=== PATIENT | female | born 1950 | race Two or more races ===

== ENCOUNTER 2024-09-07 10:39 | Outpatient (AMB) | payer MEDICARE, MEDICAID, SELFPAY ==
--- NOTE | 2024-09-07 11:04 | PD.ORTHCLVIS ---
Vital signs 09/07/24 11:05 Height 1.68 m Height Method Stated Weight 112.151 kg Weight Measurement Method Standing Scale BMI 39.9 BP 131/74 H Blood Pressure Source Automatic Cuff Blood Pressure Location Right Upper Arm Position Sitting Respiration 18 Pulse 68 Pulse Source Monitor Temp 98.2 F Temp Source Temporal Artery Scan Pulse Oximetry (%) 95 Oxygen Delivery Method Room Air Med/Allergies Allergies & Medications Allergies gabapentin Allergy (Severe, Verified 09/07/24 11:05) Hives Medication Reconciliation olmesartan 20 mg tablet (Benicar) 5 mg PO DAILY ##0 12/12/12 [History Confirmed 09/07/24] pravastatin 40 mg tablet 40 mg PO HS ##30 11/28/13 [History Confirmed 09/07/24] omeprazole 20 mg capsule,delayed release 40 mg PO QDAY ##0 08/16/14 [History Confirmed 09/07/24] glipizide 5 mg tablet 10 mg PO DAILY 08/02/19 [History Confirmed 09/07/24] levothyroxine 88 mcg tablet 100 mcg PO QDAY 03/14/20 [History Confirmed 09/07/24] aspirin 81 mg tablet,delayed release 81 mg PO QDAY 07/19/20 [History Confirmed 09/07/24] metoprolol succinate 25 mg tablet,extended release 24 hr 50 mg PO QDAY 07/19/20 [History Confirmed 09/07/24] biotin 5,000 mcg disintegrating tablet 5,000 mcg PO HS 02/22/23 [History Confirmed 09/07/24] cyanocobalamin (vitamin B-12) 1,000 mcg tablet (Vitamin B-12) 1,000 mcg PO QDAY 02/22/23 [History Confirmed 09/07/24] empagliflozin 10 mg tablet (Jardiance) 10 mg PO DAILY 02/22/23 [History Confirmed 09/07/24] hydrochlorothiazide 12.5 mg tablet 12.5 mg PO DAILY 02/22/23 [History Confirmed 09/07/24] metoclopramide HCl 10 mg tablet 10 mg PO DAILY 02/22/23 [History Confirmed 09/07/24] milk thistle 175 mg capsule 175 mg PO DAILY 02/22/23 [History Confirmed 09/07/24] omega-3 fatty acids-vitamin E 1,000 mg-5 unit capsule 1 cap PO BID 02/22/23 [History Confirmed 09/07/24] sitagliptin phosphate 50 mg-metformin 500 mg tablet (Janumet) 500 tab PO BID 02/22/23 [History Confirmed 09/07/24] clonidine HCl 0.1 mg tablet 0.1 mg PO QHS 09/07/24 [History Confirmed 09/07/24] lidocaine 4 % topical patch (Lidocaine Pain Relief) 1 patch topical QDAY PRN 09/07/24 [History Confirmed 09/07/24] meloxicam 7.5 mg tablet 7.5 mg PO QDAY #45 tabs 09/07/24 [Rx] tramadol 50 mg tablet 50 mg PO QDAY 09/07/24 [History Confirmed 09/07/24] Subjective Visit Visit for: new patient and knee Immunization / Flu Flu Vaccine in the Last 12 Months: Yes Flu Vaccine Exclusion Criteria: Already Received History of Present Illness Chief complaint: (L) KNEE PAIN Consuelo is a 74-year-old female with a left knee pain status post left total knee replacement. She reports that her surgery was in 2008. She did well up until 3 months ago. The pain is on the outer aspect of her knee. She is wearing a lidocaine patch because of the pain. She reports like it feels like it hurts over the bone Review of Systems Review of Systems: All systems negative unless otherwise noted in HPI. Exam Exam Patient is in no acute distress and is cooperative with the examination today. Breathing is nonlabored. In no respiratory distress. Bilateral extremities were evaluated and demonstrates sensation intact to light touch. Palpable pedal pulses are present. No significant edema is present. Bilateral hips were examined. The patient has no pain with log roll of the hips. Internal rotation to 30 degrees and external rotation to 30 degrees is painless. Negative FADIR. Right knee was examined today. The right knee is in reasonable alignment. Range of motion is from 0-120 degrees. Knee is stable to varus and valgus as well as AP translation with <5mm. Patient has a negative [place]. There is no pain with patellofemoral compression and no crepitus noted. The knee is nontender to palpation. Left knee incision is clean dry intact. She is tender to palpation laterally. Range of motion is 0 to 100 degrees. The knee feels like there is 5 mm of laxity X-rays demonstrate a cemented left total knee replacement in good alignment position. I do not see any gross loosening of the components Assessment and Plan Problem List (1) History of total left knee replacement: Status: Acute Plan: 74-year-old female with left knee pain and A left total knee replacement. We discussed that I do not see any gross loosening of the components. We will try physical therapy at this point in time. She would like a second opinion I think that is fine. We also sent her prescription for meloxicam Advanced Care Planning Discussion Advance care planning discussed with:: patient Office Procedures GNS Level of Care Nursing/Assessment Patient Status: Established Patient Nursing Assessment/Reassesment: Medication Reconciliation, Update PMH in EMR and Vital Signs Coordination of Care: Complex Care and Chronic Disease 1-5, Education Complex Pt/Fam, Consent,records obtained, informed consent, Results/Orders obtained and Staff clarify orders Established Patient Charge Established Patient Point Assignment: 95 Established Patient Point Charge: EP Level 3 (80-115) Past Medical History Past Medical History Have you ever been diagnosed with any of the following: Neurological Problems Seizures: No Cardiology Problems Coronary Artery Disease: Yes Hypercholesterolemia: Yes Congestive Heart Failure: No Hypertension: Yes Respiratory Problems Chronic Obstructive Pulmonary Disease (COPD): No Asthma: No Bronchitis: Yes Smoking: No Smoking Exposure: No Stomache/Intestinal Problems Obstructive Bowel: Yes Gastroesophageal Reflux Disease: Yes Genital/Urinary Problems Renal Disease: No Kidney Stones: Yes Reproductive Problems Breast Cancer: No Pelvic Inflammatory Disease: No Previous Pregnancies: Yes Musculoskeletal Problems Arthritis: Yes Carpal Tunnel Syndrome: Yes Head,Eye,Nose,Throat Problems Cataracts: Yes Endocrine Problems Diabetes Mellitus Type 1: No Diabetes Mellitus Type 2: Yes Hypothyroidism: Yes Blood Problems Anemia: Yes Sickle Cell Disease: No Other Problems Hospitalization: No Down Syndrome: No Developmental Delay: No Shingles: No Falls: No Blood Transfusions: No Anesthesia Reactions: No MRSA: No Vancomycin-Resistant Enterococci: No Chicken Pox: Yes Measles: Yes Mumps: Yes Cancer: No Surgical History Appendectomy: Yes Total Knee Replacement: Yes Hysterectomy: Yes Additional Surgical History: CORONARY STENT, COLONOSCOPY, ENDOSCOPY & LEFT AND RIGHT CATARACT SURGERY
[2024-09-07 11:05] VITALS: BP 131/74; PULSE 68; RESP 18; TEMP 36.8; O2SAT 95; BMI 39.9
== END 2024-09-07 11:36 | disposition home or self-care (01) ==
LOC: HODSRG 10:39
PROVIDERS: Supervising Provider Orthopaedic Surgery Adult Reconstructive Orthopaedic Surgery; Visit Provider Orthopaedic Surgery Adult Reconstructive Orthopaedic Surgery
DX: Z96.652 Presence of left artificial knee joint (principal); M25.562 Pain in left knee; I10 Essential (primary) hypertension; E78.00 Pure hypercholesterolemia, unspecified; I25.10 Atherosclerotic heart disease of native coronary artery without angina pectoris; Z95.5 Presence of coronary angioplasty implant and graft
CPT/HCPCS: 99213; G0463

== ENCOUNTER → 2024-09-07 | Outpatient (CLI) | payer MEDICARE, MEDICAID, SELFPAY ==
[2024-09-07 12:19] LABS: OBS Card Expiration Date 2026; OBS Card Lot # 23001; OBS Performed By LAB; OBS QC OK? Yes
[2024-09-07 13:37] LABS: OBS Developer Lot # 23003; Occult Blood, Stool Negative (Negative); Occult Blood, Stool #2 Negative (Negative); Occult Blood, Stool #3 Negative (Negative)
== END | disposition home or self-care (01) ==
LOC: SLDO 12:07
PROVIDERS: Referring Provider Internal Medicine; Visit Provider Internal Medicine
DX: Z12.11 Encounter for screening for malignant neoplasm of colon (principal)
CPT/HCPCS: 82270

== ENCOUNTER → 2024-11-15 | Outpatient (CLI) | payer MEDICARE, MEDICAID, SELFPAY ==
--- NOTE | 2024-11-15 10:15 | XR_ITS ---
Exam: MRI knee without contrast, left Date and time of exam: November 15, 2024 1118 hours INDICATIONS: Bilateral knee pain beginning 4 months ago, history knee replacement 2008, positive drawer sign Technique: Multiple axial, coronal, and sagittal sections on the knee have been obtained. T2-Weighted sagittal, fat-suppressed images, TR 3,500, TE 62, T2 weighted coronal fat-saturated images, TR 3,500, TE 62 Proton density sagittal sections, TR 1800, TE 31. T-1 weighted coronal images, TR 524, TE 13.0 Findings: All of the images are severely degraded by magnetic susceptibility artifact from the patient's arthroplasty There is no diagnostic visualization of the cruciate ligaments or menisci No patellar dislocation IMPRESSION: Suggest standard contrast fluoroscopically guided arthrogram to assess the cruciate ligaments
[2024-11-15 12:47] LABS: Misc Send Out* See Sep Rpt
[2024-11-15 13:17] LABS: Collection Type, Urine Clean Catch
[2024-11-15 13:33] LABS: Basophils # (Auto) 0.1 Thou/mm3 (0.0-0.2); Basophils % (Auto) 1 % (0-2.5); Eosinophils # (Auto) 0.3 Thou/mm3 (0.0-0.5); Eosinophils % (Auto) 3 % (0-10); Hemoglobin 11.5 g/dL (12.0-16.0); Immature Granulocytes % (Auto) 1 % (0-0); Immature Granulocytes Auto 0.07 Thou/mm3 (0.00-0.00); Lymphocytes # (Auto) 2.7 Thou/mm3 (1.0-4.8); Lymphocytes % (Auto) 31 % (10-50); Mean Corpuscular HGB Conc 32.9 g/dl (31.0-37.0); Mean Corpuscular Hemoglobin 27.8 pg (25.0-35.0); Mean Corpuscular Volume 85 fL (80-100); Monocytes # (Auto) 0.5 Thou/mm3 (0.0-0.8); Monocytes % (Auto) 6 % (0-12); Neutrophils % (Auto) 58 % (37-80); Nucleated Red Blood Cell % 0 /100 WBC (0); Platelet Count 206 Thou/mm3 (140-440); RDW Standard Deviation 45.6 fL (36.4-46.3); Red Blood Count 4.14 Miln/mm3 (4.00-5.20); White Blood Count 8.7 Thou/mm3 (3.6-11.0)
[2024-11-15 13:40] LABS: Bilirubin,Urine Negative (Negative); Blood,Urine Negative (Negative); Clarity,Urine Clear (Clear/Hazy); Color,Urine Lt-Yellow (Lt Yel-Yel); Glucose, Urine Negative (Negative); Ketones,Urine Negative (Negative); Leukocyte Esterase,Urine Positive (Negative); Nitrite,Urine Negative (Negative); Protein,Urine Trace (Neg - Trace); RBC,Urine 1 /hpf (0-3); Squamous Epithelial Cell,Urine 2 /hpf (0-5); Urobilinogen,Urine Negative mg/dL (0.0-1.0); WBC,Urine 4 /hpf (0-5)
[2024-11-15 13:50] LABS: Sed Rate (ESR) 29 mm/hr (0-30)
[2024-11-15 14:05] LABS: Alanine Aminotransferase 11 U/L (10-49); Aspartate Amino Transferase 12 U/L (0-34); Creatinine (Component) 0.8 mg/dL (0.6-1.3); eGFR > 60 See Note
[2024-11-15 15:16] LABS: C-Reactive Protein 0.7 mg/dL (0.0-0.9); Uric Acid 6.2 mg/dL (3.1-7.8)
[2024-11-15 16:03] LABS: RA Screen Negative (Negative)
[2024-11-16 14:26] LABS: Cocci Serology, IgM Negative (Negative)
[2024-11-17 14:51] LABS: Cocci Serology, IgG Negative (Negative)
== END | disposition home or self-care (01) ==
PROVIDERS: PCP Internal Medicine; Referring Provider Internal Medicine Rheumatology; Visit Provider Nurse Practitioner
DX: T84.038A Mechanical loosening of other internal prosthetic joint, initial encounter (principal); R29.898 Other symptoms and signs involving the musculoskeletal system; M25.551 Pain in right hip; M25.562 Pain in left knee; M54.50 Low back pain, unspecified
CPT/HCPCS: 36415; 73721; 81001; 82565; 84450; 84460; 84550; 84681; 85025; 85652; 86038; 86140; 86147; 86160; 86200; 86225; 86235; 86331; 86376; 86430; 86635; 86800; 86812; 87086

== ENCOUNTER → 2024-12-19 | Outpatient (CLI) | payer MEDICARE, MEDICAID, SELFPAY ==
--- NOTE | 2024-12-19 15:39 | XR_ITS ---
Examination:Right hip AP, lateral, AP pelvis 3 views Technique: Hip AP lateral, AP pelvis, 3 views Exam date and time:December 19, 2024 1600 hours INDICATIONS: Right hip pain beginning 4 years ago FINDINGS: Moderate osteopenia Moderate narrowing hip joints No hip fracture or dislocation Bones the pelvis intact IMPRESSION: Moderate bilateral hip osteoarthritis.
--- NOTE | 2024-12-19 15:39 | XR_ITS ---
Examination: left knee 2 views TECHNIQUE: AP lateral left knee 2 views Exam date and time: 10/21/2024 1606 hours INDICATIONS: Patient fell last year with injury to the knee, knee pain FINDINGS: Total left knee arthroplasty Satisfactory alignment No fracture Impression: Total left knee arthroplasty with satisfactory alignment
[2024-12-19 17:46] LABS: Glucose Estimated Average 131 mg/dL (80-131); Hemoglobin A1C 6.2 % Hgb (4.8-6.0)
[2024-12-19 17:50] LABS: Ferritin 36 ng/mL (7.3-270.7); Iron 41 mcg/dL (50-170); Percent Iron Saturation 13 % (20-55); Total Iron Binding Capacity 301 mcg/dL (250-425); Unsaturated Iron Binding 260 (225-295)
[2024-12-19 17:52] LABS: Folate 10.09 ng/mL (>5.38); Vitamin B12 1325 pg/mL (211-911); Vitamin D 25 Hydroxy Total 44.7 ng/mL (7.3-40.2)
== END | disposition home or self-care (01) ==
PROVIDERS: PCP Nurse Practitioner Family; Referring Provider Internal Medicine; Visit Provider Orthopaedic Surgery
DX: Z13.89 Encounter for screening for other disorder (principal); E11.37X1 Type 2 diabetes mellitus with diabetic macular edema, resolved following treatment, right eye; R53.81 Other malaise; M16.0 Bilateral primary osteoarthritis of hip; M25.562 Pain in left knee; Z96.652 Presence of left artificial knee joint
CPT/HCPCS: 36415; 73502; 73560; 82306; 82607; 82728; 82746; 83036; 83540; 83550

== ENCOUNTER 2025-03-22 18:57 | Emergency (ER) | payer MEDICARE, MEDICAID, SELFPAY ==
[2025-03-22] VITALS (9 sets, daily range): BP systolic 104–148; BP diastolic 69–79; PULSE 83–120; RESP 18–95; TEMP 37.2–39.5; O2SAT 95–99; BMI 41.9
--- NOTE | 2025-03-22 19:08 | PD.EDRME ---
Rapid Medical Screening Exam RME Arrival date/time: 03/22/25 18:57 Chief Complaint: Flu Like Symptoms Vital signs: None available at the time of RME evaluation. Vital signs reviewed by provider: No RME Narrative: 74-year-old female presents to the ED via EMS with a complaint of generalized weakness, fever, cough, and difficulty breathing. She took a home COVID test today which was positive. She has had a fever and her last dose of Tylenol was at 9:00 this morning. Her primary care provider prescribed her Tessalon Perles which she just picked up.
--- NOTE | 2025-03-22 19:14 | EKG_ITS ---
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
--- NOTE | 2025-03-22 19:14 | XR_ITS ---
Examination: AP chest single view TECHNIQUE: AP portable upright chest single view Date and time: March 22, 20251958 hours Comparison April 15, 2024 INDICATIONS: Sepsis protocol FINDINGS: No significant cardiac enlargement No lobar pneumonia No pulmonary edema Moderate osteopenia IMPRESSION: No pneumonia identified
[2025-03-22] MEDS: ACETAMINOPHEN 325 MG TABLET 650 MG PO (20:06)
[2025-03-22 20:12] LABS: Base Excess -1 (-3-3); HCO3 23 mEq/L (20-26); Inspired Oxygen, FIO2 21 %; O2 Saturation 94 % (91-98); PCO2 32 mmHg (32.0-48.0); PO2 66 mmHg (83-108); pH, Arterial 7.46 (7.35-7.45)
[2025-03-22 20:15] LABS: Allen Test Performed/OK; Puncture Site Left Radial
[2025-03-22 20:43] LABS: Basophils # (Auto) 0.1 Thou/mm3 (0.0-0.2); Basophils % (Auto) 1 % (0-2.5); Eosinophils # (Auto) 0.1 Thou/mm3 (0.0-0.5); Eosinophils % (Auto) 1 % (0-10); Hematocrit 33.3 % (36.0-46.0); Hemoglobin 11.8 g/dL (12.0-16.0); Immature Granulocytes % (Auto) 1 % (0-0); Immature Granulocytes Auto 0.17 Thou/mm3 (0.00-0.00); Lactate (Lactic Acid) 1.3 mMol/L (0.4-2.0); Lymphocytes # (Auto) 1.3 Thou/mm3 (1.0-4.8); Lymphocytes % (Auto) 11 % (10-50); Mean Corpuscular HGB Conc 35.4 g/dl (31.0-37.0); Mean Corpuscular Hemoglobin 28.2 pg (25.0-35.0); Mean Corpuscular Volume 80 fL (80-100); Monocytes # (Auto) 0.8 Thou/mm3 (0.0-0.8); Monocytes % (Auto) 6 % (0-12); Neutrophils # (Auto) 9.6 Thou/mm3 (1.8-7.7); Neutrophils % (Auto) 80 % (37-80); Nucleated Red Blood Cell % 0 /100 WBC (0); Platelet Count 146 Thou/mm3 (140-440); RDW Standard Deviation 42.3 fL (36.4-46.3); Red Blood Count 4.18 Miln/mm3 (4.00-5.20); White Blood Count 11.9 Thou/mm3 (3.6-11.0)
[2025-03-22 21:05] LABS: B-Type Natriuretic Peptide 91 pg/mL (0-100)
[2025-03-22 21:06] LABS: Partial Thromboplastin Time 28.3 Seconds (22.0-36.0); Prothrombin Time 11.4 Seconds (9.0-12.2)
[2025-03-22] MEDS: SODIUM CHLORIDE 0.9% 1000 ML 1,000 ML 999 ML IV (21:12)
[2025-03-22 21:14] LABS: Alanine Aminotransferase 12 U/L (10-49); Albumin, Serum 4.3 gm/dL (3.4-4.8); Albumin/Globulin Ratio 1.8 (1.2-2.2); Alkaline Phosphatase 75 U/L (46-116); Anion Gap 12 (7-16); BUN/Creatinine Ratio 13 Ratio (12-20); Bilirubin,Total 0.4 mg/dL (0.3-1.2); Blood Urea Nitrogen 12 mg/dL (9-23); Calcium 9.3 mg/dL (8.3-10.6); Calcium (Corrected) 9.3 mg/dL (8.5-10.1); Carbon Dioxide 22.6 mMol/L (20.0-31.0); Chloride 105 mMol/L (98-107); Creatinine (Component) 0.9 mg/dL (0.6-1.3); Estimated Creatinine Clearance 67.1 mL/min (>60); Globulin 2.4 gm/dL (2.3-3.5); Glucose 179 mg/dL (74-106); LDH (Lactate Dehydrogenase) 134 U/L (120-246); Lipase 34 U/L (12-53); Osmolality,Calculated 283 (275-295); Phosphorous 2.2 mg/dL (2.4-5.1); Potassium 3.7 mMol/L (3.4-5.1); Procalcitonin 0.09 ng/ml (0.0-0.49); Sodium 140 mMol/L (136-145); Total Protein 6.7 gm/dL (5.7-8.2); Troponin I < 0.020 ng/mL (0.0-0.045); eGFR > 60 See Note
[2025-03-22] MEDS: IBUPROFEN TAB 600 MG TABLET PO (21:18)
[2025-03-22] MEDS: cefTRIAXone/D5w 1gm IV premix 1 GM/50 ML BAG IV (21:19)
[2025-03-22] MEDS: SODIUM CHLORIDE 0.9% 1000 ML 2,000 ML 999 ML IV (21:25)
[2025-03-22] MEDS: ALBUTEROL/IPRATROPIUM (Duoneb) RT SOL 3 ML NEBU INH (23:31)
[2025-03-23] MEDS: Magnesium Sulfate 2 GM Ivpb 2 GM/50 ML BAG IV (00:03)
[2025-03-23] MEDS: HYDROcodone/APAP 5/325 TABLET 1 TAB PO (00:04)
--- NOTE | 2025-03-23 00:07 | PD.EDURI ---
Upper Respiratory Inf. RME/HPI General Chief Complaint: Flu Like Symptoms Stated Complaint: WEAKNESS Time Seen by Provider: 03/22/25 19:10 Arrival date/time: 03/22/25 18:57 RME / HPI RME / HPI Narrative: 74-year-old female presents to the ED via EMS with a complaint of generalized weakness, fever, cough, and difficulty breathing. She took a home COVID test today which was positive. She has had a fever and her last dose of Tylenol was at 9:00 this morning. Her primary care provider prescribed her Twan Raya which she just picked up. Related Data Home Medications ?Medication ?Instructions ?Recorded ?Confirmed olmesartan 20 mg tablet (Benicar) 5 mg PO DAILY ##0 12/12/12 09/07/24 pravastatin 40 mg tablet 40 mg PO HS ##30 11/28/13 09/07/24 omeprazole 20 mg capsule,delayed 40 mg PO QDAY ##0 08/16/14 09/07/24 release glipizide 5 mg tablet 10 mg PO DAILY 08/02/19 09/07/24 levothyroxine 88 mcg tablet 100 mcg PO QDAY 03/14/20 09/07/24 aspirin 81 mg tablet,delayed 81 mg PO QDAY 07/19/20 09/07/24 release metoprolol succinate 25 mg 50 mg PO QDAY 07/19/20 09/07/24 tablet,extended release 24 hr biotin 5,000 mcg disintegrating 5,000 mcg PO HS 02/22/23 09/07/24 tablet cyanocobalamin (vitamin B-12) 1,000 mcg PO QDAY 02/22/23 09/07/24 1,000 mcg tablet (Vitamin B-12) empagliflozin 10 mg tablet 10 mg PO DAILY 02/22/23 09/07/24 (Jardiance) hydrochlorothiazide 12.5 mg tablet 12.5 mg PO DAILY 02/22/23 09/07/24 metoclopramide HCl 10 mg tablet 10 mg PO DAILY 02/22/23 09/07/24 milk thistle 175 mg capsule 175 mg PO DAILY 02/22/23 09/07/24 omega-3 fatty acids-vitamin E 1 cap PO BID 02/22/23 09/07/24 1,000 mg-5 unit capsule sitagliptin phosphate 50 500 tab PO BID 02/22/23 09/07/24 mg-metformin 500 mg tablet (Janumet) clonidine HCl 0.1 mg tablet 0.1 mg PO QHS 09/07/24 09/07/24 lidocaine 4 % topical patch 1 patch topical QDAY PRN 09/07/24 09/07/24 (Lidocaine Pain Relief) tramadol 50 mg tablet 50 mg PO QDAY 09/07/24 09/07/24 Previous Rx's ?Medication ?Instructions ?Recorded meloxicam 7.5 mg tablet 7.5 mg PO QDAY #45 tabs 09/07/24 albuterol sulfate 90 mcg/actuation 2 puff inhalation Q4H PRN 03/23/25 aerosol inhaler shortness of breath or wheezing #8.5 grams nirmatrelvir 300 mg (150 mg See Rx Instructions PO .COMPLEX 03/23/25 x2)-ritonavir 100 mg tablet,dose #30 tabs pack (Paxlovid) Allergies Allergy/AdvReac Type Severity Reaction Status Date / Time gabapentin Allergy Severe Hives Verified 09/07/24 11:05 Review of Systems Review of Systems Systems Reviewed: All systems reviewed, normal except as documented Past Medical History Past Medical History NEUROLOGIC: Negative Neurological Disorders or Seizures CARDIAC: Positive Cardiac Disorders, Coronary Artery Disease, Hypercholesterolemia and Hypertension; Negative Congestive Heart Failure RESPIRATORY: Positive Bronchitis; Negative Chronic Obstructive Pulmonary Disease (COPD), Asthma, Smoking or Smoking Exposure GASTROINTESTINAL: Positive Obstructive Bowel and Gastroesophageal Reflux Disease; Negative Gastrointestinal Disorders GENITOURINARY: Positive Kidney Stones; Negative Genitourinary Disorders or Renal Disease REPRODUCTIVE: Positive Previous Pregnancies; Negative Breast Cancer or Pelvic Inflammatory Disease MUSCULOSKELETAL: Positive Musculoskeletal Disorders, Arthritis and Carpal Tunnel Syndrome ENT: Positive Cataracts ENDOCRINE: Positive Endocrine Disorders, Diabetes Mellitus Type 2 and Hypothyroidism; Negative Diabetes Mellitus Type 1 HEMATOLOGIC: Positive Anemia; Negative Blood Disorders or Sickle Cell Disease OTHER HISTORY: Positive Chicken Pox, Measles and Mumps; Negative Hospitalization, Autoimmune Disease, Down Syndrome, Developmental Delay, Shingles, Falls, Blood Transfusions, Anesthesia Reactions, MRSA, Vancomycin-Resistant Enterococci, Cancer or Breast Cancer Family History FAMILY HISTORY: Positive Family Cardiac Disorders and Family Cancer; Negative Family Psychiatric Problems, Family Respiratory Disorders, Family Gastrointestinal Problems, Family Surgery or Family Anesthesia Reaction Surgical History SURGICAL: Positive Coronary Stent, Angiogram, Abdominal Surgery, Hysterectomy and Tubal Ligation; Negative Cardiac Surgery, Endocrine Surgery, Ear Surgery or Joint Replacement Social History SMOKING STATUS: Never smoker SUBSTANCE USE: does not use ED Exam Narrative Physical exam: Alert and oriented, no acute distress, no respiratory distress is noted. Lungs are diminished at the bases with scattered rhonchi, tachycardic at 120, febrile at 103.1. Abdomen soft and nontender. Moves all extremities well. Course Course Course Narrative: 74-year-old female presents to the ED via EMS with a complaint of generalized weakness, fever, cough, and difficulty breathing. She took a home COVID test today which was positive. She has had a fever and her last dose of Tylenol was at 9:00 this morning. Her primary care provider prescribed her Tessalon Perles which she just picked up. Alert and oriented, no acute distress, no respiratory distress is noted. Lungs are diminished at the bases with scattered rhonchi, tachycardic at 120, febrile at 103.1. Abdomen soft and nontender. Moves all extremities well. A sepsis alert was called due to fever of 103.1 and tachycardia at 120 bpm. Sepsis fluids were ordered and given for a total of 3 L IV. bedside influenza A and B are both negative, bedside COVID is positive. Labs reveal a white count of 11.9, coags are normal. Lactic acid is normal at 1.3. Procalcitonin is normal at 0.09. ABG reveals a pH of 7.46, FMZ420, PO266, bicarb 23, oxygen saturation of 94%. Chemistry panel reveals a glucose of 179, phosphorus 2.2, magnesium 1.0, normal LFTs, normal LDH, troponin is less than 0.020. Patient was given Rocephin 1 g IV due to meeting sepsis criteria. She was given Tylenol 650 mg p.o. as well as a DuoNeb treatment. She was also given ibuprofen 600 mg p.o. and hydrocodone 5 mg p.o. Magnesium was replaced with 2 g IV. Quality Measures Current suspected stage: ruled out Reason for ruling out sepsis: Initially met sepsis criteria w/fever/tachycardia however labs r/o sepsis Possible source: pulmonary Blood cultures ordered: yes Antibiotic ordered: Yes Pertinent labs: 03/22/25 20:32 Lactic Acid 1.3 mMol/L (0.4-2.0) Procalcitonin 0.09 ng/ml (0.0-0.49) sepsis Orders Category Date Time Status Bedside COVID-19 Antigen Test NOW Care 03/22/25 20:06 Active Bedside Influenza A&B Antigen Test NOW Care 03/22/25 20:06 Completed Transcription Coordinator STAT Care 03/22/25 19:14 Active Continuous Pulse Oximetry STAT Care 03/22/25 19:14 Completed EKG (ED ONLY) *Do not use* NOW Care 03/22/25 19:14 Completed Insert IV NOW Care 03/22/25 19:14 Active NPO STAT Care 03/22/25 19:14 Active Strict Intake and Output Routine Care 03/22/25 19:14 Ordered EKG (ED Only) Stat Exams 03/22/25 19:14 Ordered XR chest 1V SEPSIS PROTOCOL Stat Exams 03/22/25 19:14 Completed Arterial Blood Gas Stat Lab 03/22/25 20:06 Completed B-Type Natriuretic Peptide Stat Lab 03/22/25 20:32 Completed Blood Culture (Lab) Stat Lab 03/22/25 20:35 Received CBC Stat Lab 03/22/25 20:32 Completed Comprehensive Metabolic Panel Stat Lab 03/22/25 20:32 Completed LDH (Lactate Dehydrogenase) Stat Lab 03/22/25 20:32 Completed Lactate (Lactic Acid) Stat Lab 03/22/25 20:32 Completed Lipase Stat Lab 03/22/25 20:32 Completed Magnesium Stat Lab 03/22/25 20:32 Completed Magnesium [Magnesium] Stat Lab 03/22/25 23:29 Ordered Partial Thromboplastin Time Stat Lab 03/22/25 20:32 Completed Phosphorous Stat Lab 03/22/25 20:32 Completed Procalcitonin Stat Lab 03/22/25 20:32 Completed Prothrombin Time with INR Stat Lab 03/22/25 20:32 Completed Troponin I Stat Lab 03/22/25 20:32 Completed Urinalysis Stat Lab 03/22/25 19:14 Ordered Urine Culture Stat Lab 03/22/25 19:14 Ordered Acetaminophen Tab [Tylenol Tab] Med 03/22/25 19:14 Discontinued 650 mg PO X1 ONE Albuterol/Ipratr Rt Bouchra [Duoneb Rt Bouchra] Med 03/22/25 22:43 Discontinued 3 ml INH X1 ONE HYDROcodone*/APAP 5/325 [[place] 5/325] Med 03/22/25 23:33 Discontinued 1 tab PO X1 ONE Ibuprofen Tab [Motrin Tab] Med 03/22/25 20:44 Discontinued 600 mg PO X1 ONE Magnesium Sulfate 1 gm Ivpb [Magnesium Sulfate Ivpb] Med 03/22/25 22:41 Discontinued 1 gm in 100 ml IV X1 Magnesium Sulfate 1 gm Ivpb [Magnesium Sulfate Ivpb] Med 03/22/25 22:42 Discontinued 1 gm in 100 ml IV X1 Magnesium Sulfate 2 GM Ivpb [Magnesium Sulfate Ivpb] Med 03/22/25 23:30 Active 2 gm in 50 ml IV X1 Sodium Chloride 0.9% 1000 ml [Ns] 1,000 ml Med 03/22/25 19:17 Discontinued IV 999 mls/hr Sodium Chloride 0.9% 1000 ml [Ns] 2,000 ml Med 03/22/25 20:41 Discontinued IV 999 mls/hr cefTRIAXone/D5w 1gm IV premix [Rocephin/D5w 1gm IV Med 03/22/25 20:44 Discontinued premix] 1 gm in 50 ml IV X1 Oxygen Delivery NOW RT 03/22/25 19:14 Active Vital Signs Vital signs: Vital Signs Temperature 103.1 F H 03/22/25 19:08 Pulse Rate 120 H 03/22/25 19:08 Respiratory Rate 18 03/22/25 19:08 Blood Pressure 148/79 H 03/22/25 19:08 Pulse Oximetry (%) 95 03/22/25 19:08 Oxygen Delivery Method Room Air 03/22/25 19:08 Upper Respiratory Infection MDM Narrative MDM Narrative:: 74-year-old female presents to the ED via EMS with a complaint of generalized weakness, fever, cough, and difficulty breathing. She took a home COVID test today which was positive. She has had a fever and her last dose of Tylenol was at 9:00 this morning. Her primary care provider prescribed her Tessalon Perles which she just picked up. Alert and oriented, no acute distress, no respiratory distress is noted. Lungs are diminished at the bases with scattered rhonchi, tachycardic at 120, febrile at 103.1. Abdomen soft and nontender. Moves all extremities well. A sepsis alert was called due to fever of 103.1 and tachycardia at 120 bpm. Sepsis fluids were ordered and given for a total of 3 L IV. bedside influenza A and B are both negative, bedside COVID is positive. Labs reveal a white count of 11.9, coags are normal. Lactic acid is normal at 1.3. ABG reveals a pH of 7.46, [id number], PO266, bicarb 23, oxygen saturation of 94%. Chemistry panel reveals a glucose of 179, phosphorus 2.2, magnesium 1.0, normal LFTs, normal LDH, troponin is less than 0.020, procalcitonin is 0.09. Patient was given Rocephin 1 g IV due to meeting sepsis criteria. She was given Tylenol 650 mg p.o. as well as a DuoNeb treatment. She was also given ibuprofen 600 mg p.o. and hydrocodone 5 mg p.o. Magnesium was replaced with 2 g IV. Patient data External records reviewed:: None Clinical information provided by:: patient and EMS Social determinants that could affect healthcare access:: none Patient has the following chronic illnesses:: Diabetes, hypertension, hyperlipidemia, hypothyroidism. How is presenting disease/condition affected by chronic disease/condition?: uneffected by Evaluation data The following diagnostics were reviewed and interpreted by me:: lab results and radiology exam(s) Lab and/or radiology exams considered but not ordered:: N/A Interpretation Summary: Labs reveal a white count of 11.9, coags are normal. Lactic acid is normal at 1.3. ABG reveals a pH of 7.46, [id number], PO266, bicarb 23, oxygen saturation of 94%. Chemistry panel reveals a glucose of 179, phosphorus 2.2, magnesium 1.0, normal LFTs, normal LDH, troponin is less than 0.020, procalcitonin is 0.09. XR Chest: FINDINGS: No significant cardiac enlargement. No lobar pneumonia. No pulmonary edema. Moderate osteopenia IMPRESSION: No pneumonia identified Medications / Prescriptions Medications or Prescriptions considered but not ordered:: N/A Medication administrations:: Medication Administration History Magnesium Sulfate (Magnesium Sulfate Ivpb) 2 gm in 50 mls @ 25 mls/hr IV X1 ONE Stop: 03/23/25 01:29 Last Admin: 03/23/25 00:03 Dose: 25 mls/hr Documented By: AM Discontinued Medications Acetaminophen (Acetaminophen 325 Mg Tablet) 650 mg PO X1 ONE Stop: 03/22/25 19:15 Last Admin: 03/22/25 20:06 Dose: 650 mg Documented By: AM Hydrocodone Bitart/Acetaminophen (Hydrocodone/Apap 5/325 Tablet) 1 tab PO X1 ONE Stop: 03/22/25 23:34 Last Admin: 03/23/25 00:04 Dose: 1 tab Documented By: AM Albuterol/Ipratropium (Albuterol/Ipratropium (Duoneb) Rt Bouchra 3 Ml Nebu) 3 ml INH X1 ONE Stop: 03/22/25 22:44 Last Admin: 03/22/25 23:31 Dose: 3 ml Documented By: MARLINE Sodium Chloride (Ns) 1,000 mls @ 999 mls/hr IV .Q1H1M ONE Stop: 03/22/25 20:17 Last Infusion: 03/22/25 22:15 Dose: Infused Documented By: Admin: 03/22/25 21:12 Dose: 999 mls/hr Documented By: AM Sodium Chloride (Ns) 2,000 mls @ 999 mls/hr IV .Q2H1M ONE Stop: 03/22/25 22:41 Last Infusion: 03/23/25 00:06 Dose: Infused Documented By: Admin: 03/22/25 21:25 Dose: 999 mls/hr Documented By: AM Ceftriaxone Sodium/Dextrose (Rocephin/D5w 1gm Iv Premix) 1 gm in 50 mls @ 100 mls/hr IV X1 ONE Stop: 03/22/25 21:13 Last Infusion: 03/22/25 21:50 Dose: Infused Documented By: Admin: 03/22/25 21:19 Dose: 100 mls/hr Documented By: AM Magnesium Sulfate/Dextrose (Magnesium Sulfate Ivpb) 1 gm in 100 mls @ 100 mls/hr IV X1 ONE Stop: 03/22/25 23:40 Last Admin: 03/22/25 23:32 Dose: Not Given Documented By: AM Non-Admin Reason: Cancelled by Provider Magnesium Sulfate/Dextrose (Magnesium Sulfate Ivpb) 1 gm in 100 mls @ 100 mls/hr IV X1 ONE Stop: 03/22/25 23:41 Last Admin: 03/22/25 23:32 Dose: Not Given Documented By: AM Non-Admin Reason: Cancelled by Provider Ibuprofen (Ibuprofen Tab 600 Mg Tablet) 600 mg PO X1 ONE Stop: 03/22/25 20:45 Last Admin: 03/22/25 21:18 Dose: 600 mg Documented By: AM Tylenol 650 mg p.o., ibuprofen 600 mg p.o., DuoNeb 3 mL via nebulizer, sodium chloride 3000 mL IV, ceftriaxone 1 g IV, magnesium sulfate 2 g IV Consultations Consultation(s) initiated? (list below): No Diagnosis Upper Respiratory Differential Diagnosis: upper respiratory infection, viral infection, bronchitis, influenza, pharyngitis and other (Pneumonia) Most likely diagnosis given after review of the tests above:: COVID-19 Admission Indicated Admission indicated?: not indicated Explain why admission is indicated or not indicated:: Patient is stable for discharge Admission Request Was there a request for admission?: No Disposition Plan Disposition Plan: Discharge Discharge Attestation Discharge Attestation: The patient and all family members were given an opportunity to ask questions and understood the discharge instructions. Discharge instructions specifically effects, indications for sooner follow up or return to the emergency department, and the expected course of current diagnosis. Patient condition: Stable Discharge Plan Plan Patient Disposition: HOME (Self Care) Discharge Disposition comment: Stable and Improved Prescriptions/Referrals Prescriptions/Med Rec: New Paxlovid 300 mg (150 mg x 2)-100 mg tablets,dose pack See Rx Instructions .ROUTE .COMPLEX Qty: 30 0RF Rx Instructions: take TWO 150 mg tablets of nirmatrelvir with ONE 100 mg tablet of ritonavir twice daily for 5 days albuterol sulfate 90 mcg/actuation HFA aerosol inhaler 2 puff inhalation Q4H PRN (Reason: shortness of breath or wheezing) Qty: 8.5 0RF No Action tramadol 50 mg tablet 50 mg PO QDAY clonidine HCl 0.1 mg tablet 0.1 mg PO QHS lidocaine [Lidocaine Pain Relief] 4 % adhesive patch,medicated 1 patch topical QDAY PRN meloxicam 7.5 mg tablet 7.5 mg PO QDAY Qty: 45 3RF olmesartan [Benicar] 20 MG tablet 5 mg PO DAILY Qty: 0 pravastatin 40 mg Tablet 40 mg PO HS Qty: 30 omeprazole 20 MG capsule,delayed release(DR/EC) 40 mg PO QDAY Qty: 0 aspirin 81 mg Tablet,Delayed Release (Dr/Ec) 81 mg PO QDAY metoprolol succinate 25 mg Tablet Extended Release 24 Hr 50 mg PO QDAY glipizide 5 mg tablet 10 mg PO DAILY Patient Comments: TK 1 T PO BID levothyroxine 88 mcg Tablet 100 mcg PO QDAY metoclopramide HCl 10 mg tablet 10 mg PO DAILY Patient Comments: TAKE 1 BY MOUTH DAILY BEFORE MEALS hydrochlorothiazide 12.5 mg tablet 12.5 mg PO DAILY Patient Comments: TAKE 1 TABLET BY MOUTH EVERY DAY Janumet 50-500 mg tablet 500 tab PO BID Patient Comments: TAKE 1 TABLET BY MOUTH TWICE DAILY DIRECTED Jardiance 10 mg tablet 10 mg PO DAILY Patient Comments: TAKE 1 TABLET BY MOUTH EVERY DAY cyanocobalamin (vitamin B-12) [Vitamin B-12] 1,000 mcg Tablet 1,000 mcg PO QDAY omega-3 fatty acids-vitamin E 1,000-5 mg-unit Capsule 1 cap PO BID milk thistle 175 mg Capsule 175 mg PO DAILY Rx Instructions: give with meal/snack biotin 5,000 mcg Tablet,Disintegrating 5,000 mcg PO HS Referrals: Sudheer Garner MD [Primary Care Provider] - In 1 week Problem List Clinical Impression: COVID-19, Upper respiratory infection Patient/Caregiver Discharge Instructions Education Materials: 2019-nCoV Additional Instructions: Take the antiviral medications as prescribed and complete the course even though you may be feeling better. Use the inhaler to help with your cough. Also use the previously prescribed benzonatate pills prescribed by your physician. Follow-up with your primary care physician in 24 to 48 hours. Return to the ED for any new or worsening symptoms. Print Language: [place] Stand Alone Forms: Suki Award Info., Patient Portal Info Letter PA/GARRETT Supervising Physician PA/GARRETT Supervising Physician: Dr Day
[2025-03-23 00:45] LABS: Collection Type, Urine Clean Catch
[2025-03-23 00:50] LABS: Bacteria,Urine Rare; Bilirubin,Urine Negative (Negative); Blood,Urine Negative (Negative); Clarity,Urine Clear (Clear/Hazy); Color,Urine Lt-Yellow (Lt Yel-Yel); Glucose, Urine Negative (Negative); Ketones,Urine Trace (Negative); Leukocyte Esterase,Urine Negative (Negative); Nitrite,Urine Negative (Negative); Protein,Urine Trace (Neg - Trace); RBC,Urine 1 /hpf (0-3); Specific Gravity,Urine 1.015 (1.001-1.035); Squamous Epithelial Cell,Urine 3 /hpf (0-5); Urobilinogen,Urine Negative mg/dL (0.0-1.0); WBC,Urine 2 /hpf (0-5)
[2025-03-23 02:00] VITALS: BP 112/78; PULSE 86; RESP 16; TEMP 36.8; O2SAT 95
== END 2025-03-23 02:43 | disposition home or self-care (01) ==
PROVIDERS: Physician Assistant; Emergency Provider Emergency Medicine; PCP Internal Medicine
DX: U07.1 COVID-19 (principal); J06.9 Acute upper respiratory infection, unspecified; R00.0 Tachycardia, unspecified; I10 Essential (primary) hypertension; E78.00 Pure hypercholesterolemia, unspecified; I25.10 Atherosclerotic heart disease of native coronary artery without angina pectoris; Z95.5 Presence of coronary angioplasty implant and graft
CPT/HCPCS: 36415; 36600; 71045; 80053; 81001; 82803; 83605; 83615; 83690; 83735; 83880; 84100; 84145; 84484; 85025; 85610; 85730; 87040; 87086; 87400; 87811; 93005; 94640; 96361; 96365; 96366; 96367; 99284; A9270; J0696; J3475; J7030

== ENCOUNTER → 2025-05-07 | Outpatient (CLI) | payer MEDICARE, MEDICAID, SELFPAY ==
[2025-05-07 13:36] LABS: Basophils # (Auto) 0.1 Thou/mm3 (0.0-0.2); Basophils % (Auto) 1 % (0-2.5); Eosinophils # (Auto) 0.3 Thou/mm3 (0.0-0.5); Eosinophils % (Auto) 3 % (0-10); Hematocrit 34.5 % (36.0-46.0); Hemoglobin 11.3 g/dL (12.0-16.0); Immature Granulocytes Auto 0.02 Thou/mm3 (0.00-0.00); Lymphocytes # (Auto) 3.1 Thou/mm3 (1.0-4.8); Lymphocytes % (Auto) 38 % (10-50); Mean Corpuscular HGB Conc 32.8 g/dl (31.0-37.0); Mean Corpuscular Hemoglobin 27.8 pg (25.0-35.0); Mean Corpuscular Volume 85 fL (80-100); Monocytes # (Auto) 0.5 Thou/mm3 (0.0-0.8); Monocytes % (Auto) 6 % (0-12); Neutrophils # (Auto) 4.4 Thou/mm3 (1.8-7.7); Neutrophils % (Auto) 53 % (37-80); Nucleated Red Blood Cell # 0.00 Thou/mm3 (0.00-0.00); Nucleated Red Blood Cell % 0 /100 WBC (0); Platelet Count 176 Thou/mm3 (140-440); RDW Standard Deviation 47.8 fL (36.4-46.3); Red Blood Count 4.06 Miln/mm3 (4.00-5.20); White Blood Count 8.4 Thou/mm3 (3.6-11.0)
[2025-05-07 13:47] LABS: Glucose Estimated Average 151 mg/dL (80-131); Hemoglobin A1C 6.9 % Hgb (4.8-6.0)
[2025-05-07 14:06] LABS: Ferritin 41 ng/mL (7.3-270.7); Iron 82 mcg/dL (50-170); Percent Iron Saturation 26 % (20-55); Total Iron Binding Capacity 309 mcg/dL (250-425); Unsaturated Iron Binding 227 (225-295)
== END | disposition home or self-care (01) ==
LOC: COPL 12:46
PROVIDERS: PCP Internal Medicine; Referring Provider Internal Medicine; Visit Provider Internal Medicine
DX: E11.39 Type 2 diabetes mellitus with other diabetic ophthalmic complication (principal); D50.8 Other iron deficiency anemias
CPT/HCPCS: 36415; 82728; 83036; 83540; 83550; 85025

== ENCOUNTER → 2025-09-24 | Outpatient (CLI) | payer MEDICARE, MEDICAID, SELFPAY ==
--- NOTE | 2025-09-24 14:00 | XR_ITS ---
Examination: Screening digital mammography, bilateral Computer aided detection 3-D breast Tomosynthesis, bilateral Date and time of exam: 09/24/2025, 1:24 p.m. Comparisons: 03/25/2024 Indications: Screening Technique: Nonmagnified MLO, CC views of the breasts to been obtained, reconstructed from 3-D Tomosynthesis images. R2 computer aided detection program utilized for evaluation of suspicious masses and/or abnormal calcifications. 3-D Tomosynthesis images obtained. Technologist: Findings: There are scattered areas of fibroglandular density. No evidence of abnormal masses or suspicious calcifications. Impression: BI-RADS category 1: Negative findings (within normal) Recommend 1 year follow-up mammogram
== END | disposition home or self-care (01) ==
LOC: CDIM 13:16
PROVIDERS: PCP Student in an Organized Health Care Education/Training Program; Referring Provider Student in an Organized Health Care Education/Training Program; Visit Provider Student in an Organized Health Care Education/Training Program
DX: Z12.31 Encounter for screening mammogram for malignant neoplasm of breast (principal); R92.313 Mammographic fatty tissue density, bilateral breasts
CPT/HCPCS: 77063; 77067